=== PATIENT | female | born 2000 | race Caucasian/White ===

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

== ENCOUNTER 2022-01-17 20:23 | Emergency (ER) | payer OTHER ==
[~2022-01-17] VITALS: Ht 149.9 cm; Wt 84.1 kg
[~2022-01-17 20:23] MED LIST changes: +IBUP80TA PO; +OXYC1TAB23 PO; +VALA500T5 PO
[2022-01-17 21:14] VITALS: BP 119/62
[2022-01-17] MEDS ORDERED: ACETAMINOPHEN TAB 650MG DOSE (2X325MG) PO ONE (21:40)
== END 2022-01-17 23:42 | disposition home or self-care (01) ==
LOC: M ED 20:23
DX: S16.1XXA Strain of muscle, fascia and tendon at neck level, initial encounter (principal); S39.012A Strain of muscle, fascia and tendon of lower back, initial encounter; V49.49XA Driver injured in collision with other motor vehicles in traffic accident, initial encounter; Y92.410 Unspecified street and highway as the place of occurrence of the external cause; F31.9 Bipolar disorder, unspecified; E66.9 Obesity, unspecified; Z88.0 Allergy status to penicillin; Z88.1 Allergy status to other antibiotic agents; Z91.010 Allergy to peanuts; Z91.018 Allergy to other foods

== ENCOUNTER → 2022-06-29 | Outpatient (CLI) | payer OTHER | LOC: M WHC 13:49 | PROVIDERS: ATTEND Obstetrics & Gynecology | DX: N83.292 Other ovarian cyst, left side (principal); N83.291 Other ovarian cyst, right side ==

== ENCOUNTER → 2022-09-30 | Outpatient (CLI) | payer OTHER ==
[~2022-09-30] MED LIST changes: +ALBU8.5H INH; +CELE1CAP9 PO; +CIPR0.3S37 AD; -CIPR0.3S6 AD; +FEXO-112 PO; +FLUT50SP17; +PANT40TA29 PO
[2022-09-30 18:07] LABS: HEPATITIS B SURFACE ANTIGEN NEGATIVE (NEGATIVE)
[2022-09-30 18:20] LABS: HIV 1&2 SCREEN ATELLICA NEGATIVE (NEGATIVE)
== END ==
LOC: M PLALAB 16:11
PROVIDERS: ATTEND Obstetrics & Gynecology
DX: Z11.3 Encounter for screening for infections with a predominantly sexual mode of transmission (principal)

== ENCOUNTER → 2023-01-01 | Outpatient (CLI) | payer OTHER | LOC: M PLALAB 12:32 | PROVIDERS: ATTEND Obstetrics & Gynecology | DX: N92.6 Irregular menstruation, unspecified (principal) ==

== ENCOUNTER 2023-01-21 06:01 | Day surgery (SDC) | payer OTHER ==
[~2023-01-21] VITALS: Ht 149.9 cm; Wt 95.5 kg
[2023-01-21 06:33] LABS: HEMATOCRIT 34.9 % (36.0-47.0); HEMOGLOBIN 10.9 g/dl (12.0-15.5); MEAN CORPUSCULAR HEMOGLOBIN 23.3 pg (27.0-33.0); MEAN CORPUSCULAR HGB CONC 31.2 g/dl (32.0-36.5); MEAN CORPUSCULAR VOLUME 74.7 fl (80.0-96.0); PLATELET COUNT, AUTOMATED 295 10^3/uL (150-450); RED BLOOD COUNT 4.67 10^6/uL (4.00-5.40); WHITE BLOOD COUNT 6.7 10^3/uL (4.0-10.0)
[2023-01-21] MEDS ORDERED: HYDROmorphone HCL 2MG/ML 1ML VIAL As Ordered ONE (07:15)
[2023-01-21] MEDS ORDERED: MIDAZOLAM INJ 2MG/2ML VIAL As Ordered ONE (07:15)
[2023-01-21] MEDS ORDERED: fentaNYL 100 MCG/2 ML INJECTION As Ordered ONE (07:15)
[2023-01-21] MEDS ORDERED: LIDOCAINE 2% 100MG/5ML SDV (FOR ANES.) As Ordered ONE (07:16)
[2023-01-21] MEDS ORDERED: ONDANSETRON 4MG 2ML VIAL As Ordered ONE (07:16)
[2023-01-21] MEDS ORDERED: ROCURONIUM BROMIDE 50MG/5ML VIAL As Ordered ONE ×2 (07:16→09:02)
[2023-01-21] MEDS ORDERED: METOCLOPRAMIDE INJ 10MG/2ML VIAL As Ordered ONE (07:16)
[2023-01-21] MEDS ORDERED: propofoL 200 MG/20 ML VIAL As Ordered ONE ×2 (07:16→08:56)
[2023-01-21] MEDS ORDERED: KETOROLAC 60MG 2ML VIAL As Ordered ONE (07:16)
[2023-01-21] MEDS ORDERED: SUGAMMADEX SODIUM 500 MG/5 ML VIAL (BRIDION) As Ordered ONE (07:22)
[2023-01-21] MEDS ORDERED: ACETAMINOPHEN 1000MG 100ML IV BAG As Ordered ONE (07:28)
[2023-01-21] MEDS ORDERED: LR 1,000 ML IV SCH ×2 (07:35→09:00)
[2023-01-21] MEDS ORDERED: SCOPOLAMINE 1MG TRANSDERMAL PATCH TOP ONE (07:35)
[2023-01-21] MEDS ORDERED: GLYCOPYRROLATE INJ 0.2 MG/ML 2 ML VIAL As Ordered ONE (08:15)
[2023-01-21] MEDS ORDERED: ePHEDrine SULFATE 25 MG/5 ML(5MG/ML) SYRINGE As Ordered ONE (08:38)
[2023-01-21] MEDS ORDERED: oxyCODONE 5MG TAB PO PRN (09:00)
[2023-01-21] MEDS ORDERED: fentaNYL 100 MCG/2 ML INJECTION IV PRN (09:00)
[2023-01-21] MEDS ORDERED: HYDROMORPHONE HCL 0.5 MG/ 0.5 ML SYRINGE IV PRN (09:00)
[2023-01-21] MEDS ORDERED: ONDANSETRON 4MG 2ML VIAL IV PRN (09:00)
[2023-01-21] MEDS ORDERED: ceFAZolin 2 GM/D5W 50 ML IV BAG As Ordered ONE (09:14)
[2023-01-21 10:24] VITALS: BP 123/69; TEMP 97.1; O2SAT 95
[2023-01-21] MEDS ORDERED: PERCOCET 5MG/325MG TAB PO PRN (10:40)
[2023-01-21] MEDS ORDERED: KETOROLAC 30 MG/ML 1ML VIAL IV SCH (15:00)
== END 2023-01-21 11:00 | disposition home or self-care (01) ==
LOC: M SDC 06:01
PROVIDERS: ATTEND Obstetrics & Gynecology
DX: D27.1 Benign neoplasm of left ovary (principal); N83.01 Follicular cyst of right ovary; N83.291 Other ovarian cyst, right side; E28.2 Polycystic ovarian syndrome; J45.909 Unspecified asthma, uncomplicated; Z88.0 Allergy status to penicillin; Z88.1 Allergy status to other antibiotic agents; Z91.010 Allergy to peanuts; Z91.018 Allergy to other foods; F17.290 Nicotine dependence, other tobacco product, uncomplicated
CPT/HCPCS: 36415; 58661; 85027; 86850; 86900; 86901; 88305; J0131; J0665; J0690; J1100; J1170; J1885; J2250; J2405; J2765; J3010

== ENCOUNTER → 2023-11-10 | Outpatient (CLI) | payer OTHER ==
[~2023-11-10] MED LIST changes: +CELE0.09 PO; -CELE1CAP9 PO; -FLUT50SP17; +FLUTISP; -RISP-7 PO; +RISP0.5T82 PO
== END ==
LOC: M WUC 14:10
PROVIDERS: ATTEND Physician Assistant
DX: M25.561 Pain in right knee (principal)

== ENCOUNTER → 2023-12-28 | Outpatient (CLI) | payer OTHER ==
[~2023-12-28] MED LIST changes: +ONDA-282 PO; -ONDA4TAB6 PO
== END ==
LOC: M WUC 11:27
PROVIDERS: ATTEND Nurse Practitioner Family
DX: M25.572 Pain in left ankle and joints of left foot (principal)

== ENCOUNTER → 2024-11-28 | Outpatient (CLI) | payer OTHER ==
[~2024-11-28] MED LIST changes: -ARIP10TA32 PO; +ARIP10TA63 PO; +NITR100C2 PO
[2024-11-28 18:45] LABS: HEMATOCRIT 34.2 % (36.0-47.0); HEMOGLOBIN 10.4 g/dl (12.0-15.5); MEAN CORPUSCULAR HEMOGLOBIN 22.5 pg (27.0-33.0); MEAN CORPUSCULAR HGB CONC 30.4 g/dl (32.0-36.5); MEAN CORPUSCULAR VOLUME 73.9 fl (80.0-96.0); PLATELET COUNT, AUTOMATED 313 10^3/uL (150-450); RED BLOOD COUNT 4.63 10^6/uL (4.00-5.40); WHITE BLOOD COUNT 10.6 10^3/uL (4.0-10.0)
[2024-11-28 19:12] LABS: HIV 1&2 SCREEN NEGATIVE (NEGATIVE)
[2024-11-28 19:20] LABS: HEPATITIS C VIRUS ABY INDEX 0.09 INDEX (<0.8)
[2024-11-28 19:36] LABS: Trichomonas vaginalis (AMP) NOT DETECTED (NEGATIVE)
[2024-11-28 19:59] LABS: GC DNA AMPLIFICATION NEGATIVE (NEGATIVE)
== END ==
LOC: M PLALAB 14:40
PROVIDERS: ATTEND Advanced Practice Midwife
DX: Z34.81 Encounter for supervision of other normal pregnancy, first trimester (principal)

== ENCOUNTER → 2024-12-25 | Outpatient (REF) | payer OTHER ==
[~2024-12-25] MED LIST changes: -NITR100C2 PO
[2024-12-25 18:00] LABS: AMORPHOUS SEDIMENT SMALL (NEGATIVE); APPEARANCE, URINE TURBID (CLEAR); BACTERIA, URINE AUTO NEGATIVE (NEGATIVE); BILIRUBIN, URINE AUTO NEGATIVE (NEGATIVE); BLOOD, URINE BLOOD 1+ (NEGATIVE); GLUCOSE, URINE (UA) AUTO NEGATIVE (NEGATIVE); KETONE, URINE AUTO NEGATIVE (NEGATIVE); LEUKOCYTE ESTERASE, URINE AUTO 2+ (NEGATIVE); MUCUS, URINE SMALL (NEGATIVE); NITRITE, URINE AUTO NEGATIVE (NEGATIVE); PROTEIN, URINE AUTO 2+ mg/dL (NEGATIVE); RBC, URINE AUTO 0 /HPF (0-3); SPECIFIC GRAVITY URINE AUTO 1.029 (1.002-1.035); SQUAMOUS EPITHELIAL CELL UR AU 3 /HPF (0-6); UROBILINOGEN, URINE AUTO 0.2 mg/dL (0.0-2.0); WBC, URINE AUTO 23 /HPF (0-3)
== END ==
LOC: M SFHCWAGY 17:00
PROVIDERS: ATTEND Advanced Practice Midwife
DX: R30.0 Dysuria (principal)

== ENCOUNTER → 2024-12-28 | Outpatient (REF) | payer OTHER | LOC: M PLALAB 13:54 | PROVIDERS: ATTEND Obstetrics & Gynecology | DX: R30.0 Dysuria (principal) ==

== ENCOUNTER → 2025-01-05 | Outpatient (CLI) | payer OTHER ==
[2025-01-05 11:32] LABS: APPEARANCE, URINE CLEAR (CLEAR); BACTERIA, URINE AUTO 1+ (NEGATIVE); BILIRUBIN, URINE AUTO NEGATIVE (NEGATIVE); BLOOD, URINE BLOOD 1+ (NEGATIVE); GLUCOSE, URINE (UA) AUTO 3+ mg/dL (NEGATIVE); KETONE, URINE AUTO NEGATIVE (NEGATIVE); LEUKOCYTE ESTERASE, URINE AUTO NEGATIVE (NEGATIVE); MUCUS, URINE SMALL (NEGATIVE); NITRITE, URINE AUTO NEGATIVE (NEGATIVE); PROTEIN, URINE AUTO 1+ mg/dL (NEGATIVE); RBC, URINE AUTO 1 /HPF (0-3); SPECIFIC GRAVITY URINE AUTO 1.008 (1.002-1.035); SQUAMOUS EPITHELIAL CELL UR AU 1 /HPF (0-6); UROBILINOGEN, URINE AUTO 0.2 mg/dL (0.0-2.0); WBC, URINE AUTO 1 /HPF (0-3)
== END ==
LOC: M PLALAB 08:18
PROVIDERS: ATTEND Obstetrics & Gynecology
DX: O34.211 Maternal care for low transverse scar from previous cesarean delivery (principal)

== ENCOUNTER 2025-02-02 15:39 | Outpatient (CLI) | payer OTHER ==
[~2025-02-02] VITALS: Ht 149.9 cm; Wt 101.4 kg
[~2025-02-02 15:39] MED LIST changes: -NITR100C2 PO
[2025-02-02 15:59] VITALS: BP 133/76; O2SAT 97
[2025-02-02] MEDS ORDERED: NITR100C2 PO (17:37)
[2025-02-02] MEDS ORDERED: HOME MED LIST COMPLETE! XX SCH (17:40)
[2025-02-02 18:44] LABS: Trichomonas vaginalis (AMP) NOT DETECTED (NEGATIVE)
[2025-02-02 19:08] LABS: GC DNA AMPLIFICATION NEGATIVE (NEGATIVE)
== END 2025-02-02 17:05 | disposition home or self-care (01) ==
LOC: M LDI 15:39 → M LDO 15:39 → UNDOADMOB 15:39 → M LDO 17:05 → UNDODISOB 17:05 → EDSTATUS 02-05 15:09
PROVIDERS: ATTEND Advanced Practice Midwife
DX: O26.872 Cervical shortening, second trimester (principal); O34.219 Maternal care for unspecified type scar from previous cesarean delivery; Z86.32 Personal history of gestational diabetes; Z3A.19 19 weeks gestation of pregnancy
CPT/HCPCS: 59025; 87661; 87810; 87850; G0463

== ENCOUNTER → 2025-02-02 | Outpatient (CLI) | payer OTHER ==
[~2025-02-02] MED LIST changes: +NITR100C2 PO
== END ==
LOC: M WHC 13:04
PROVIDERS: ATTEND Obstetrics & Gynecology
DX: O44.42 Low lying placenta NOS or without hemorrhage, second trimester (principal); Z3A.18 18 weeks gestation of pregnancy; O32.1XX0 Maternal care for breech presentation, not applicable or unspecified

== ENCOUNTER 2025-02-05 21:23 | Emergency (ER) | payer OTHER ==
[~2025-02-05] VITALS: Ht 149.9 cm; Wt 101.8 kg
[~2025-02-05 21:23] MED LIST changes: +NITR100C2 PO
[2025-02-05 21:24] VITALS: BP 126/73; TEMP 97.4; O2SAT 99
== END 2025-02-05 21:42 | disposition admitted as inpatient to this hospital (09) ==
LOC: M ED 21:23
DX: Z53.21 Procedure and treatment not carried out due to patient leaving prior to being seen by health care provider (principal)

== ENCOUNTER 2025-02-05 21:43 | Outpatient (CLI) | payer OTHER ==
[~2025-02-05] VITALS: Ht 149.9 cm; Wt 102.1 kg
[2025-02-05 22:04] VITALS: BP 132/69
== END 2025-02-05 22:22 | disposition home or self-care (01) ==
LOC: M LDO 21:43
PROVIDERS: ATTEND Advanced Practice Midwife
DX: O26.892 Other specified pregnancy related conditions, second trimester (principal); O26.872 Cervical shortening, second trimester; O34.219 Maternal care for unspecified type scar from previous cesarean delivery; N89.8 Other specified noninflammatory disorders of vagina; Z3A.19 19 weeks gestation of pregnancy; Z86.32 Personal history of gestational diabetes
CPT/HCPCS: 59025; G0463

== ENCOUNTER → 2025-02-07 | Outpatient (CLI) | payer OTHER | LOC: M RAD 08:46 | PROVIDERS: ATTEND Advanced Practice Midwife | DX: O26.872 Cervical shortening, second trimester (principal); Z3A.20 20 weeks gestation of pregnancy ==

== ENCOUNTER → 2025-02-23 | Outpatient (CLI) | payer OTHER | LOC: M WHC 08:19 | PROVIDERS: ATTEND Advanced Practice Midwife | DX: Z34.82 Encounter for supervision of other normal pregnancy, second trimester (principal) ==

== ENCOUNTER → 2025-03-23 | Outpatient (CLI) | payer OTHER | LOC: M WHC 07:54 | PROVIDERS: ATTEND Advanced Practice Midwife | DX: O09.299 Supervision of pregnancy with other poor reproductive or obstetric history, unspecified trimester (principal) ==

== ENCOUNTER → 2025-04-02 | Outpatient (CLI) | payer OTHER ==
[2025-04-02 13:38] LABS: PLATELET COUNT, AUTOMATED 243 10^3/uL (150-450)
[2025-04-02 13:43] LABS: GLUCOSE CHALLENGE TEST 1 HOUR 158 MG/DL (LESS THAN 140)
[2025-04-02 14:10] LABS: HIV 1&2 SCREEN NEGATIVE (NEGATIVE)
[2025-04-02 14:18] LABS: HEPATITIS C VIRUS ABY INDEX 0.02 INDEX (<0.8)
[2025-04-02 14:31] LABS: Trichomonas vaginalis (AMP) NOT DETECTED (NEGATIVE)
[2025-04-02 14:55] LABS: GC DNA AMPLIFICATION NEGATIVE (NEGATIVE)
== END ==
LOC: M PLALAB 09:02
PROVIDERS: ATTEND Obstetrics & Gynecology
DX: Z34.80 Encounter for supervision of other normal pregnancy, unspecified trimester (principal)

== ENCOUNTER → 2025-04-04 | Outpatient (CLI) | payer OTHER | LOC: M LAB 07:28 | PROVIDERS: ATTEND Advanced Practice Midwife | DX: O99.810 Abnormal glucose complicating pregnancy (principal) ==

== ENCOUNTER → 2025-04-13 | Outpatient (CLI) | payer OTHER ==
[2025-04-13 15:47] LABS: PLATELET COUNT, AUTOMATED 229 10^3/uL (150-450)
[2025-04-13 16:19] LABS: FREE T4 1.13 NG/DL (0.89-1.76)
== END ==
LOC: M PLALAB 12:33
PROVIDERS: ATTEND Student in an Organized Health Care Education/Training Program
DX: Z34.80 Encounter for supervision of other normal pregnancy, unspecified trimester (principal)

== ENCOUNTER 2025-05-01 13:44 | Outpatient (CLI) | payer OTHER ==
[~2025-05-01] VITALS: Ht 149.9 cm; Wt 103.2 kg
[~2025-05-01 13:44] MED LIST changes: +ALBUTEROL SULFATE 2.5 MG/0.5 ML INH CONCENTRATE NEB SOLN INH PRN; +EPINEPHrine INJ 1 MG/ML 1ML AMP IM PRN; +diphenhydrAMINE 50 MG/ML VIAL IV PRN
[2025-05-01 13:50] VITALS: BP 118/58; O2SAT 99
[2025-05-01] MEDS: IRON SUCROSE 200MG IVP IV ONE (13:58)
[2025-05-01] MEDS ORDERED: diphenhydrAMINE 25MG PO PRIOR TO INFUSION PO ONE (14:00)
[2025-05-01] MEDS ORDERED: ACETAMINOPHEN 650MG PO PRIOR TO INFUSION PO ONE (14:00)
[2025-05-01 14:45] VITALS: BP 106/59; O2SAT 99
== END 2025-05-01 14:45 | disposition home or self-care (01) ==
LOC: M INFU 13:44
PROVIDERS: ATTEND Obstetrics & Gynecology
DX: O99.012 Anemia complicating pregnancy, second trimester (principal); Z88.0 Allergy status to penicillin; Z88.1 Allergy status to other antibiotic agents
CPT/HCPCS: 96374; J1756

== ENCOUNTER 2025-05-08 13:26 | Outpatient (CLI) | payer OTHER ==
[~2025-05-08] VITALS: Ht 149.9 cm; Wt 103.0 kg
[2025-05-08 13:30] VITALS: BP 131/61; O2SAT 100
[2025-05-08] MEDS: IRON SUCROSE 200MG IVP IV ONE (13:40)
[2025-05-08] MEDS: diphenhydrAMINE 25MG PO PRIOR TO INFUSION PO ONE (13:43)
[2025-05-08] MEDS: ACETAMINOPHEN 650MG PO PRIOR TO INFUSION PO ONE (13:44)
[2025-05-08 14:23] VITALS: BP 100/58; O2SAT 97
== END 2025-05-08 14:25 | disposition home or self-care (01) ==
LOC: M INFU 13:26
PROVIDERS: ATTEND Student in an Organized Health Care Education/Training Program
DX: O99.012 Anemia complicating pregnancy, second trimester (principal)
CPT/HCPCS: 96374; J1756

== ENCOUNTER 2025-05-15 14:37 | Outpatient (CLI) | payer OTHER ==
[~2025-05-15] VITALS: Ht 149.9 cm; Wt 109.0 kg
[2025-05-15] MEDS ORDERED: ACETAMINOPHEN 650MG PO PRIOR TO INFUSION PO ONE (15:00)
[2025-05-15] MEDS ORDERED: diphenhydrAMINE 25MG PO PRIOR TO INFUSION PO ONE (15:00)
[2025-05-15] MEDS: IRON SUCROSE 200MG IVP IV ONE (15:04)
[2025-05-15 15:39] VITALS: BP 128/58; O2SAT 98
== END 2025-05-15 15:28 | disposition home or self-care (01) ==
LOC: M INFU 14:37
PROVIDERS: ATTEND Student in an Organized Health Care Education/Training Program
DX: O99.012 Anemia complicating pregnancy, second trimester (principal); D64.9 Anemia, unspecified; Z3A.00 Weeks of gestation of pregnancy not specified; Z88.0 Allergy status to penicillin; Z88.1 Allergy status to other antibiotic agents
CPT/HCPCS: 96374; J1756

== ENCOUNTER 2025-05-23 12:23 | Outpatient (CLI) | payer OTHER ==
[~2025-05-23] VITALS: Ht 149.9 cm; Wt 102.3 kg
[2025-05-23 14:30] VITALS: BP 116/57; O2SAT 97
[2025-05-23] MEDS: IRON SUCROSE 200MG IVP IV ONE (14:39)
[2025-05-23] MEDS: ACETAMINOPHEN 650MG PO PRIOR TO INFUSION PO ONE (15:04)
[2025-05-23] MEDS: diphenhydrAMINE 25MG PO PRIOR TO INFUSION PO ONE (15:04)
[2025-05-23 15:18] VITALS: BP 106/61; O2SAT 97
== END 2025-05-23 15:18 ==
LOC: M INFU 12:23
PROVIDERS: ATTEND Student in an Organized Health Care Education/Training Program
DX: O99.012 Anemia complicating pregnancy, second trimester (principal); Z88.0 Allergy status to penicillin; Z88.1 Allergy status to other antibiotic agents
CPT/HCPCS: 96374; J1756

== ENCOUNTER → 2025-05-29 | Outpatient (REF) | payer OTHER ==
[~2025-05-29] MED LIST changes: -ALBUTEROL SULFATE 2.5 MG/0.5 ML INH CONCENTRATE NEB SOLN INH PRN; -EPINEPHrine INJ 1 MG/ML 1ML AMP IM PRN; -diphenhydrAMINE 50 MG/ML VIAL IV PRN
== END ==
LOC: M SFHCWAGY 10:41
PROVIDERS: ATTEND Obstetrics & Gynecology
DX: Z36.85 Encounter for antenatal screening for Streptococcus B (principal); Z3A.36 36 weeks gestation of pregnancy

== ENCOUNTER 2025-05-30 14:25 | Outpatient (CLI) | payer OTHER ==
[~2025-05-30 14:25] MED LIST changes: +ALBUTEROL SULFATE 2.5 MG/0.5 ML INH CONCENTRATE NEB SOLN INH PRN; +EPINEPHrine INJ 1 MG/ML 1ML AMP IM PRN; +diphenhydrAMINE 50 MG/ML VIAL IV PRN
[2025-05-30] MEDS: ACETAMINOPHEN 650MG PO PRIOR TO INFUSION PO ONE (14:36)
[2025-05-30] MEDS: IRON SUCROSE 200MG IVP IV ONE (14:36)
[2025-05-30] MEDS: diphenhydrAMINE 25MG PO PRIOR TO INFUSION PO ONE (14:36)
[2025-05-30 14:45] VITALS: BP 100/61; O2SAT 97
[2025-05-30 15:10] VITALS: BP 114/69; O2SAT 98
== END 2025-05-30 15:10 ==
LOC: M INFU 14:25
PROVIDERS: ATTEND Student in an Organized Health Care Education/Training Program
DX: O99.012 Anemia complicating pregnancy, second trimester (principal); Z88.0 Allergy status to penicillin; Z88.1 Allergy status to other antibiotic agents
CPT/HCPCS: 96374; J1756

== ENCOUNTER 2025-06-03 10:38 | Outpatient (CLI) | payer OTHER ==
[~2025-06-03] VITALS: Ht 149.9 cm; Wt 103.0 kg
[~2025-06-03 10:38] MED LIST changes: -ALBUTEROL SULFATE 2.5 MG/0.5 ML INH CONCENTRATE NEB SOLN INH PRN; -EPINEPHrine INJ 1 MG/ML 1ML AMP IM PRN; -diphenhydrAMINE 50 MG/ML VIAL IV PRN
[2025-06-03] MEDS ORDERED: HOME MED LIST COMPLETE! XX SCH (10:50)
[2025-06-03 10:55] VITALS: BP 114/62; O2SAT 97
[2025-06-03 12:49] VITALS: BP 110/63
== END 2025-06-03 14:42 | disposition home or self-care (01) ==
LOC: M LDO 10:38
PROVIDERS: ATTEND Obstetrics & Gynecology
DX: O26.893 Other specified pregnancy related conditions, third trimester (principal); O99.343 Other mental disorders complicating pregnancy, third trimester; M54.50 Low back pain, unspecified; W10.9XXA Fall (on) (from) unspecified stairs and steps, initial encounter; Y92.9 Unspecified place or not applicable; Y93.9 Activity, unspecified; Y99.9 Unspecified external cause status; Z3A.36 36 weeks gestation of pregnancy; F31.9 Bipolar disorder, unspecified; Z86.32 Personal history of gestational diabetes; Z88.1 Allergy status to other antibiotic agents; Z91.010 Allergy to peanuts
CPT/HCPCS: 59025; G0463

== ENCOUNTER → 2025-06-11 | Outpatient (CLI) | payer OTHER | LOC: M WHC 10:23 | PROVIDERS: ATTEND Advanced Practice Midwife | DX: O26.849 Uterine size-date discrepancy, unspecified trimester (principal) ==